=== PATIENT | female | born 1985 | race Caucasian/White ===

== ENCOUNTER → 2020-07-30 | Outpatient (CLI) | payer OTHER ==
[~2020-07-30] MED LIST: ANTIVERT 25MG T25 MG PO; BUPRENORPHIN-N1 EACH PO; COLACE 100MG C100 MG PO; ENOXAPARIN40 MG/0.4 SQ; IBUPROFEN600 MG PO; PREDNISONE 50 M50 MG PO; PRENATAL VITAM1 EAC3 PO; SUBUTEX 8 MG TAB8 MG PO
[2020-07-30 12:07] LABS: HEMOGLOBIN 12.7 gm/dl (12.3-15.3); RED BLOOD COUNT 4.28 M/UL (4.00-5.10); WHITE BLOOD COUNT 5.4 K/UL (4.5-11.0)
== END ==
LOC: LAB 11:51
PROVIDERS: Family Medicine
DX: R23.3 Spontaneous ecchymoses (principal)
CPT/HCPCS: 36415; 85025

== ENCOUNTER → 2020-09-09 | Outpatient (CLI) | payer OTHER | LOC: EMI 14:42 | DX: R51.9 Headache, unspecified (principal); G37.9 Demyelinating disease of central nervous system, unspecified; R29.818 Other symptoms and signs involving the nervous system; H53.9 Unspecified visual disturbance | CPT/HCPCS: 70551 ==

== ENCOUNTER 2022-02-16 16:31 | Emergency (ER) | payer OTHER ==
[2022-02-16 17:23] LABS: HEMOGLOBIN 12.5 gm/dl (12.3-15.3); RED BLOOD COUNT 4.11 M/UL (4.00-5.10); WHITE BLOOD COUNT 4.3 K/UL (4.5-11.0)
[2022-02-16 17:51] LABS: BUN/CREATININE RATIO 14 (0-10)
[2022-02-16] MEDS ORDERED: MYLANTA MAXIMU355 ML PO (21:56)
[2022-02-16] MEDS ORDERED: PROTONIX40 MG PO (21:56)
== END 2022-02-16 22:19 | disposition home or self-care (01) ==
LOC: ER1 16:31
DX: R10.12 Left upper quadrant pain (principal); R06.02 Shortness of breath; R07.81 Pleurodynia; R10.812 Left upper quadrant abdominal tenderness; Z86.711 Personal history of pulmonary embolism; Z90.49 Acquired absence of other specified parts of digestive tract; Z90.710 Acquired absence of both cervix and uterus; Z88.0 Allergy status to penicillin; Z79.899 Other long term (current) drug therapy; Z88.1 Allergy status to other antibiotic agents
CPT/HCPCS: 71045; 80053; 81001; 82150; 82550; 82553; 82962; 83690; 84484; 85025; 96374; 99284; C9113; Q9967